=== PATIENT | female | born 1935 | race Caucasian/White ===

== ENCOUNTER → 2016-08-12 | Outpatient (CLI) | payer OTHER ==
[~2016-08-12] VITALS: Ht 154.9 cm; Wt 61.3 kg
[~2016-08-12] MED LIST: ASMANEX TW200 MICRO1 IH; ASMANEX TW200 MICROG IH; ASPIRIN81 M1 PO; ATIVAN0.5 MG PO; AZITHROMYCIN250 MG PO; BONINE25 MG PO; CENTRUM SILV1 TABLET PO; CENTRUM SILVER1 EAC3 PO; FLOVENT DISKUS1 DIS2 IH; LIPITOR20 MG PO; LOW DOSE ASPIRI81 M1 PO; MAXZIDE 37.5 M1 EACH PO; MECLIZINE HCL25 M3 PO; MIRAPEX0.125 MG PO; NASACORT AQ16.5 GM BOTH NARES; NORVASC2.5 MG PO; OMEGA 3-6-91200 MG PO; OMEGA-31000 M1 PO; PROAIR HFA8.5 GM IH; PROTONIX40 MG PO; PULMICORT0.25 MG/1 IH; ROBITUSSIN NIG118 ML PO; TAMIFLU75 MG PO; TRIAMCINOLONE16.5 GM BOTH NARES; TRIAMTERENE-HC1 EAC1 PO; VENTOLIN HFA18 GM; ZITHROMAX250 MG PO
== END | disposition home or self-care (01) ==
LOC: AMB 13:15
DX: J18.9 Pneumonia, unspecified organism (principal); J47.9 Bronchiectasis, uncomplicated; J45.909 Unspecified asthma, uncomplicated; J84.10 Pulmonary fibrosis, unspecified; K21.9 Gastro-esophageal reflux disease without esophagitis; I10 Essential (primary) hypertension; Z86.73 Personal history of transient ischemic attack (TIA), and cerebral infarction without residual deficits
CPT/HCPCS: 87070; 87077; 87081; 87116; 87147; 87205; 87206; 87278; 88108; J2175; J2250; J2310; J2550; J3010

== ENCOUNTER 2017-02-27 22:06 | Inpatient (IN) | payer OTHER ==
[~2017-02-27] VITALS: Ht 152.4 cm; Wt 57.7 kg
[~2017-02-27 22:06] MED LIST changes: -PULMICORT0.25 MG/1 IH; +PULMICORT0.5 MG/21 IH; +SINGULAIR10 MG PO; +SYNTHROID25 MCG PO; +TRAZODONE HCL50 MG PO
[2017-02-28 07:40] VITALS: BP 158/74
[2017-02-28 18:40] VITALS: BP 107/77
[2017-02-28 20:22] VITALS: BP 104/56
[2017-03-01 00:04] VITALS: BP 134/62
[2017-03-01 04:16] VITALS: BP 110/75
[2017-03-01 06:41] LABS: HEMATOCRIT 33.2 % (36.0-46.0); MCV 95.4 FL (83-99)
[2017-03-01 07:44] VITALS: BP 113/58
[2017-03-01] MEDS ORDERED: ASPIRIN EC325 MG PO (08:00)
[2017-03-01] MEDS ORDERED: HYDROCODON-ACE1 EAC7 PO (08:02)
[2017-03-01 11:30] VITALS: BP 107/56
[2017-03-01 15:55] VITALS: BP 136/60
[2017-03-01 23:28] VITALS: BP 128/59
[2017-03-02 03:29] VITALS: BP 145/66
[2017-03-02 06:07] LABS: HEMATOCRIT 32.3 % (36.0-46.0); MCV 94.7 FL (83-99)
[2017-03-02 07:46] VITALS: BP 117/57
== END 2017-03-02 15:52 | disposition home or self-care (01) | DRG 483 ==
LOC: ENRESERV 22:06 → 2SOUTH 02-28 06:50 → 3EAST 02-28 06:50 → SDC 02-28 08:36 → EDSTATUS 02-28 14:32 → 2SOUTH 02-28 14:37 → ENRESERV 02-28 15:50 → 3EAST 02-28 17:30
PROVIDERS: Orthopaedic Surgery
PROC: 0RRJ00Z Replacement of Right Shoulder Joint with Reverse Ball and Socket Synthetic Substitute, Open Approach (ICD-10-PCS; principal; 2017-02-28)
DX: M19.011 Primary osteoarthritis, right shoulder (principal); M75.101 Unspecified rotator cuff tear or rupture of right shoulder, not specified as traumatic; J44.9 Chronic obstructive pulmonary disease, unspecified; I10 Essential (primary) hypertension; E03.9 Hypothyroidism, unspecified; K21.9 Gastro-esophageal reflux disease without esophagitis; E78.00 Pure hypercholesterolemia, unspecified; Z86.73 Personal history of transient ischemic attack (TIA), and cerebral infarction without residual deficits; Z82.49 Family history of ischemic heart disease and other diseases of the circulatory system
CPT/HCPCS: 85014; 85018; 90686; 94640; 94640 76; 94760; 94799; 99202; C1713; J0330; J0690; J1100; J2405; J2765; J2795; J3010; J7030; J7050; Q0175

== ENCOUNTER 2017-10-24 14:08 | Emergency (ER) | payer OTHER ==
[~2017-10-24] VITALS: Ht 152.4 cm; Wt 58.5 kg
[~2017-10-24 14:08] MED LIST changes: +ASPIRIN EC325 MG PO; +HYDROCODON-ACE1 EAC7 PO
[2017-10-24 15:26] VITALS: BP 156/95
== END 2017-10-24 15:27 | disposition home or self-care (01) ==
LOC: EME 14:08
DX: S60.211A Contusion of right wrist, initial encounter (principal); S40.021A Contusion of right upper arm, initial encounter; V49.40XA Driver injured in collision with unspecified motor vehicles in traffic accident, initial encounter; Z96.611 Presence of right artificial shoulder joint; I10 Essential (primary) hypertension; E78.5 Hyperlipidemia, unspecified; J44.9 Chronic obstructive pulmonary disease, unspecified; M85.821 Other specified disorders of bone density and structure, right upper arm; M85.831 Other specified disorders of bone density and structure, right forearm; Z90.710 Acquired absence of both cervix and uterus; Z86.73 Personal history of transient ischemic attack (TIA), and cerebral infarction without residual deficits; Z79.82 Long term (current) use of aspirin
CPT/HCPCS: 73060; 73110; 99281; 99284